=== PATIENT | male | born 1955 | race Caucasian/White ===

== ENCOUNTER → 2018-06-11 | Outpatient (CLI) | payer BC ==
[~2018-06-11] MED LIST: NORVASC 10MG10 MG PO; PAXIL PO; PERCOCET 500 MG1 TAB PO; PRILOSEC 20MG20 MG PO
== END ==
LOC: ZCOL.LAB 09:40
DX: M79.604 Pain in right leg (principal)

== ENCOUNTER → 2021-04-30 | Outpatient (CLI) | payer BC | LOC: COL.RAD 13:11 | DX: K57.32 Diverticulitis of large intestine without perforation or abscess without bleeding (principal) | CPT/HCPCS: Q9967 ==

== ENCOUNTER 2023-10-10 20:46 | Emergency (ER) | payer BC ==
[~2023-10-10] VITALS: Ht 180.3 cm; Wt 86.4 kg
[2023-10-10 20:47] VITALS: TEMP 98.1
[2023-10-10] MEDS ORDERED: Home HYDROcodone/Acetaminophen 5/325 MG #4 TABS/PACK PO ONE (22:00)
[2023-10-10 22:14] VITALS: BP 155/72; PULSE 72
== END 2023-10-10 22:15 | disposition home or self-care (01) ==
LOC: COL.ER 20:46
DX: S76.112A Strain of left quadriceps muscle, fascia and tendon, initial encounter (principal); W10.9XXA Fall (on) (from) unspecified stairs and steps, initial encounter; X50.1XXA Overexertion from prolonged static or awkward postures, initial encounter
CPT/HCPCS: L1830; L1846